=== PATIENT | female | born 2000 | race Caucasian/White ===

== ENCOUNTER 2020-10-03 20:28 | Emergency (ER) | payer OTHER ==
[2020-10-04 01:08] LABS: Bilirubin Negative (Negative); Blood, Urine Negative (Negative); Clarity Clear (Clear); Glucose, Urine (Dipstick) Normal (Negative); Ketone, Urine Negative (Negative); Leukocyte Negative Leu/uL (Negative); Nitrite Negative (Negative); Protein, Urine (Dipstick) Negative (Neg-Trace); Specific Gravity, Urine 1.016 (1.002-1.036); Urobilinogen Normal mg/dL (Less than 2); pH, Urine 7.5 (5.0-9.0)
[2020-10-04 01:09] LABS: Pregnancy Test - Urine (BHCG) Negative (Negative); Pregu Control Background? CLEAR/WHITE (CLR/WHITE); Pregu Control Bar Appear? YES (CONTROL BAR); Specific Gravity 1.016 (1.002-1.036)
--- NOTE | 2020-10-04 11:52 | CT ---
PRELIMINARY REPORT/DIRECT RADIOLOGY/EMERGENCY AFTER HOURS PROCEDURE: EXAM: CT Head Without Intravenous Contrast. CLINICAL HISTORY: HEADACHE TECHNIQUE: Axial computed tomography images of the head/brain without intravenous contrast. COMPARISON: None provided. FINDINGS: BRAIN: No acute intraparenchymal hemorrhage. No mass lesion. No CT evidence for acute territorial inf arct. No midline shift or extra-axial collection. ORBITS: The orbits are unremarkable. SINUSES AND MASTOIDS: The paranasal sinuses and mastoid air cells are unremarkable. SOFT TISSUES: No significant facial or scalp soft tissue swelling evident. No radiopaque foreign body is seen. BONES: No acute skull fracture. IMPRESSION: No acute intracranial abnormality. ELECTRONICALLY SIGNED BY: Jeff Shah MD Oct 04, 2020 1:53:49 AM SURVEYOR HYDROGRAPHIC FINAL REPORT CT HEAD WITHOUT CONTRAST: No acute intracranial abnormality. I am in agreement with the preliminary report. POS: [facility]
== END 2020-10-04 02:19 | disposition home or self-care (01) ==
LOC: ERS 20:28
DX: R42 Dizziness and giddiness (principal)
CPT/HCPCS: 70450; 81003; 81025